=== PATIENT | male | born 1950 | race African-American/Black ===

== ENCOUNTER 2017-12-17 18:26 | Emergency (ER) | payer MEDICARE ==
[~2017-12-17] VITALS: Ht 191.8 cm; Wt 104.0 kg
[~2017-12-17 18:26] MED LIST: ALLO300 PO; ANUS25SU PR; HYDR100T2 PO; LISI-360 PO; MECL25CH PO; METO25 PO; SIMV80TA PO; TAMS0.4C67 PO; VITATAB25 PO
[2017-12-17 18:29] VITALS: BP 155/86; PULSE 81; RESP 16; TEMP 98.5; O2SAT 97
[2017-12-17] MEDS ORDERED: SIMV80TA PO (18:44)
[2017-12-17] MEDS ORDERED: HYDR12.57 PO (18:44)
[2017-12-17] MEDS ORDERED: LISI10TA3 PO (18:44)
[2017-12-17] MEDS ORDERED: METO25TA3 PO (18:44)
[2017-12-17] MEDS ORDERED: GABA100C4 PO (18:44)
[2017-12-17] MEDS ORDERED: ALLO300T2 PO (18:44)
[2017-12-17] MEDS ORDERED: AMLO5TAB2 PO (18:44)
--- NOTE | 2017-12-17 19:45 | PD ---
HPI Chief Complaint: Back/ Neck Pain or Injury Time Seen by Provider: 19:35 (Corrine Bal) Time Seen by Provider: 19:40 (Ernesto Cesar MD) Travel History International Travel<30 days: No Contact w/Intl Traveler<30days: No Traveled to known affect area: No (Corrine Bal) History of Present Illness HPI This is a 67-year-old male with a painful tender swelling in the right submandibular region 2 days. Denies fever or chills. Denies difficulty swallowing. Symptom severity is mild to moderate. No aggravating or alleviating factors. Patient is a nonsmoker. (Corrine Bal) PFSH Past Medical History Hx Anticoagulant Therapy: Yes (BABY ASA DAILY) Cardiovascular Problems: Yes (HTN, CHOL, HEART VALVE REPLACEMENT) High Cholesterol: Yes Coronary Artery Disease: Yes Diabetes: No Diminished Hearing: No Hypertension: Yes Immunizations Current: Yes Tetanus Vaccination: Unknown Influenza Vaccination: No (Corrine Bal) Past Surgical History Abdominal Surgery: Yes (HERNIA) Coronary Artery Bypass Graft: Yes Valve Replacement: Yes (Corrine Bal) Social History Alcohol Use: No Tobacco Use: No Substance Use: No (Corrine Bal) Allergies-Medications (Allergen,Severity, Reaction): Coded Allergies: No Known Allergies (Unverified Adverse Reaction, Unknown, 12/17/17) Reported Meds & Prescriptions Reported Meds & Active Scripts Active Augmentin (Amoxicillin-Clavulanate) 875-125 Mg Tab 1 Tab PO BID Reported Simvastatin 80 Mg Tab 80 Mg PO DAILY Metoprolol Tartrate 25 Mg Tab 25 Mg PO BID Lisinopril 10 Mg Tab 10 Mg PO DAILY Hydrochlorothiazide 12.5 Mg Cap 12.5 Mg PO DAILY Gabapentin 100 Mg Cap 100 Mg PO TID Amlodipine (Amlodipine Besylate) 5 Mg Tab 5 Mg PO DAILY Allopurinol 300 Mg Tab 300 Mg PO DAILY (Ernesto Cesar MD) Review of Systems Except as stated in HPI: all other systems reviewed are Neg General / Constitutional: No: Fever (Corrine Bal) Physical Exam Narrative GENERAL: Alert and well-appearing 67-year-old male SKIN: Warm and dry. HEAD: Normocephalic. EYES: No injection or drainage. Mouth: Uvula is midline. No oropharyngeal edema. NECK: Supple, trachea midline. Tender and mobile mass to the left submandibular region. CARDIOVASCULAR: Regular rate and rhythm without murmurs, gallops, or rubs. RESPIRATORY: Breath sounds equal bilaterally. No accessory muscle use. GASTROINTESTINAL: Abdomen soft, non-tender, nondistended. MUSCULOSKELETAL: No cyanosis, or edema. BACK: Nontender without obvious deformity. No CVA tenderness. (Corrine Bal) Data Data Last Documented VS Vital Signs Date Time Temp Pulse Resp B/P (MAP) Pulse Ox O2 Delivery O2 Flow Rate FiO2 12/17/17 18:29 98.5 81 16 155/86 (109) 97 (Ernesto Cesar MD) MDM Medical Decision Making Medical Screen Exam Complete: Yes Emergency Medical Condition: Yes Differential Diagnosis Dental abscess, sialolithiasis, lymphadenopathy, neck mass Narrative Course Since a 67-year-old male with a painful tender swelling in the right submandibular region 2 days. The patient is well-appearing. His vital signs are stable. He has a soft and tender mobile mass to the right submandibular region. This is likely a blocked salivary gland. He will be put on antibiotics. Instructed to eat sour lemon candies. [facility] Was discussed at length with patient and family that if the swelling persisted beyond a week with no improvement that he may need imaging to rule out a neoplastic mass in the neck although I find that unlikely given it arose in a matter of 48 hours. (Corrine Bal) Diagnosis Primary Impression: Sialolithiasis of submandibular gland Referrals: Guevara Wang MD Ear / Nose / Throat Specialist Additional Instructions: Antibiotics as prescribed. Lemon candies. Follow-up with ENT Return if any new or worsening symptoms Scripts Amoxicillin-Clavulanate (Augmentin) 875-125 Mg Tab 1 TAB PO BID for Infection, #20 TAB 0 Refills Prov: Corrine Bal 12/17/17 Disposition: 01 DISCHARGE HOME Condition: Stable Corrine Bal Dec 17, 2017 19:45 Ernesto Cesar MD Dec 20, 2017 19:31
[2017-12-17] MEDS ORDERED: AUGM875T3 PO (19:46)
== END 2017-12-17 19:52 | disposition home or self-care (01) ==
LOC: PHEFT 18:26
DX: K11.5 Sialolithiasis (principal); I10 Essential (primary) hypertension; E78.00 Pure hypercholesterolemia, unspecified; I25.10 Atherosclerotic heart disease of native coronary artery without angina pectoris; Z79.899 Other long term (current) drug therapy
CPT/HCPCS: 99283